=== PATIENT | male | born 1990 | race Caucasian/White ===

== ENCOUNTER 2016-06-22 12:56 | Emergency (ER) | payer BC, OTHER ==
[~2016-06-22] VITALS: Ht 193 cm; Wt 96.7 kg
[~2016-06-22 12:56] MED LIST: ALL180
[2016-06-22 13:04] VITALS: TEMP 37; Ht 193 cm; Wt 96.7 kg
[2016-06-22] MEDS ORDERED: OPTIRAY 320 IV PRN (13:45)
--- NOTE | 2016-06-22 13:49 | DIAGNOSTIC IMAGING REPORT ---
CHEST ONE VIEW PORTABLE CLINICAL HISTORY: Epigastric abdominal pain, eval for free air pain COMPARISON STUDY: None FINDINGS: The bones soft tissues and hemidiaphragms are normal. The cardiomediastinal silhouette is normal. The lungs are clear. The pulmonary vasculature is normal. IMPRESSION: Negative chest. Electronically signed by: Shad Braun M.D. 06/22/2016 1:47 PM Dictated Date/Time: 06/22/2016 1:47 PM
[2016-06-22 14:35] LABS: URINE APPEARANCE CLEAR (CLEAR); URINE BILIRUBIN NEG (NEG); URINE COLOR YELLOW; URINE NITRITE NEG (NEG); URINE PH 7.5 (4.5-7.5); URINE SPECIFIC GRAVITY 1.009 (1.000-1.030); UROBILINOGEN NEG (NEG); ZZUR CULT IF INDIC CLEAN CATCH NO
[2016-06-22 14:46] LABS: MANUAL MICROSCOPIC REQUIRED? NO; REVIEW REQ? NO
[2016-06-22 15:11] LABS: BASO % 0.2 %; BASO ABS # 0.01 K/uL (0-0.2); COMPLETE YES; EOS % 0.8 %; HEMATOCRIT 42.8 % (42-52); IG% 0.2 %; LYMPH % 23.3 %; LYMPH ABS # 1.18 K/uL (1.2-3.4); MEAN CELL VOLUME 88.4 fL (80-100); MEAN CORPUSCULAR HEMOGLOBIN 32.4 pg (25-34); MEAN CORPUSCULAR HGB CONC 36.7 g/dl (32-36); MEAN PLATELET VOLUME 10.8 fL (7.4-10.4); MONO % 10.3 %; NEUT % 65.2 %; PLATELET COUNT 224 K/uL (130-400); RED BLOOD COUNT 4.84 M/uL (4.7-6.1); WHITE BLOOD COUNT 5.06 K/uL (4.8-10.8)
[2016-06-22 15:27] LABS: BUN/CREATININE RATIO 9.6 (10-20); CALCIUM 9.6 mg/dl (8.5-10.1); CREATININE 1.4 mg/dl (0.60-1.40); POTASSIUM 3.7 mmol/L (3.5-5.1)
[2016-06-22 15:30] LABS: ALB/GLOB RATIO 1.3 (0.9-2)
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
--- NOTE | 2016-06-22 16:32 | DIAGNOSTIC IMAGING REPORT ---
ABDOMEN AND PELVIS CT WITH IV AND ORAL CONTRAST CT DOSE: 464.43 mGy.cm HISTORY: Left lower quadrant abdominal pain. TECHNIQUE: Multiaxial CT images of the abdomen and pelvis were performed following the use of intravenous and oral contrast. COMPARISON STUDY: None. FINDINGS: The lung bases are essentially clear. No pneumoperitoneum. No pneumatosis. No fractures within the visualized osseous structures. The liver, gallbladder, pancreas, and adrenal glands are unremarkable. There is a 9 mm hypodense lesion within the spleen. This is too small to characterize. The right kidney is severely atrophic. The left kidney enhances normally. No hydronephrosis. The distal right ureter is distended up to 2.6 cm. However, there is no associated inflammatory change. There is mild bladder wall thickening. No pelvic free fluid. Normal left ureter. No bowel wall thickening or obstruction. Normal appendix. IMPRESSION: 1. No bowel wall thickening or obstruction. 2. Normal appendix. 3. Markedly atrophic right kidney. The distal right ureter is distended. However, there are no ureteral stones identified. Therefore, this favors a chronic/congenital abnormality. 4. Mild bladder wall thickening. Recommend correlation with urinalysis to exclude a cystitis. Electronically signed by: Austin Batista M.D. 06/22/2016 4:30 PM Dictated Date/Time: 06/22/2016 4:24 PM
[2016-06-22] MEDS ORDERED: DICYCLOMINE HCL 10 MG/ML 2 ML AMP IM STA (16:51)
[2016-06-22] MEDS ORDERED: KETOROLAC TROMETHAMINE 30 MG/ML VIAL IV STA (16:51)
[2016-06-22 18:45] VITALS: BP 138/69; PULSE 52; O2SAT 99
[2016-06-22] MEDS ORDERED: OXYC1TAB3 PO (18:55)
[2016-06-22] MEDS ORDERED: DICY20TA35 PO (18:55)
[2016-06-22] MEDS ORDERED: OXYCODONE IR HOME PACK PO STA (19:05)
[2016-06-22 20:18] LABS: INFLUENZA A PCR Neg for Influ A (NEG); INFLUENZA B PCR Neg for Influ B (NEG)
== END 2016-06-22 19:12 | disposition home or self-care (01) ==
LOC: C.EDB 12:58 → C.EDA 19:12
DX: R10.12 Left upper quadrant pain (principal); Z87.891 Personal history of nicotine dependence; Z82.49 Family history of ischemic heart disease and other diseases of the circulatory system